=== PATIENT | female | born 1980 | race Caucasian/White ===

== ENCOUNTER 2020-11-30 22:57 | Emergency (ER) | payer SELFPAY ==
--- NOTE | ~2020-11-30 | XR_ITS ---
EXAMINATION: XR finger 4th RT min 2V DATE: 12/01/2020 00:32 INDICATION: Right hand fourth digit injury. TECHNIQUE: 3 views of right hand fourth digit were obtained. COMPARISON: None. FINDINGS: Bone alignment is normal. There is an old healed fracture of neck of fifth metacarpal with 2 screws. Joint spaces are normal. IMPRESSION: 1. No acute fracture. Reviewed, dictated and finalized at location A. IMPRESSION: 1. No acute fracture.
[2020-11-30 23:11] VITALS: BP 91/65; PULSE 107; RESP 18; TEMP 37.4; O2SAT 100
[2020-11-30] MEDS: LIDOCAINE HCL 1% LOCAL INJ 20 ML VIAL (23:26)
[2020-12-01] MEDS: NEOMYCIN/POLYMYXIN/BACITRACIN OINTMENT PACKET 2 PACKET (00:08)
--- NOTE | 2020-12-01 00:12 | ED.WOUNDLAC ---
HPI - Wound/Laceration General Chief Complaint: Wound/Laceration Stated Complaint: hand injury Time Seen by Provider: 11/30/20 23:30 Source: patient and family Mode of arrival: ambulatory Limitations: no limitations History of Present Illness HPI narrative: 40-year-old woman comes to emergency department complaining of laceration and bleeding from her right ring finger that started just prior to admission. She was moving an appliance at home when it shifted and caught her finger. she states she had a tetanus shot 5 years ago. She denies numbness. Onset (ago): minute(s) (20) Extremity Location: Right: hand (ring finger) Place: home Patient tetanus UTD: Yes Context: accidental Associated symptoms: pain Related Data Home Medications Medication Instructions Recorded Confirmed escitalopram oxalate 20 mg PO DAILY 11/30/20 11/30/20 Allergies Allergy/AdvReac Type Severity Reaction Status Date / Time codeine Allergy Mild Unknown Verified 01/01/18 10:35 amoxicillin Allergy Unknown rash Verified 01/01/18 10:35 Review of Systems Review of Systems: All systems reviewed & are unremarkable except as noted in HPI and below Constitutional: Constitutional: Denies weakness Gastrointestinal: Gastrointestinal: Denies nausea and Denies vomiting Musculoskeletal: Musculoskeletal: Denies arthralgias and Denies joint swelling Integumentary/Breasts: Skin/Breast: Reports as per HPI, Denies pruritus, Denies erythema and Denies rash Neurologic: Denies focal weakness and Denies numbness Hematologic/Lymphatic: Hematologic/Lymphatic: Denies easy bleeding and Denies easy bruising PMFSH Surgical History Surgical History (Updated 12/01/20 @ 00:19 by Benny Bui MD) H/O hand surgery right, with pins History of x 4 Social History Social History (Updated 12/01/20 @ 00:19 by Benny Bui MD) Smoking status: Current every day smoker Living arrangements: with family Exam Const: General: healthy appearing and alert Orientation/consciousness: patient oriented x3 Other: [id number] acute distress. Eyes: Conjunctivae: conjunctivae normal Pupils: Equal, round and reactive pupils present EOM: EOMs intact bilaterally Resp: Effort & Inspection: normal respiratory effort and not labored Auscultation: clear to auscultation bilaterally, no rales, no rhonchi and no wheezes Cardio: Rate: regular rate Rhythm: regular rhythm Heart sounds: no murmurs Skin: General skin exam: normal color, no jaundice and no pallor Rashes: no rashes Neuro: General: patient oriented x3, moves all extremities, no focal motor deficits and CN's II-XI intact bilaterally Speech: normal speech Gait exam (Neuro): Normal gait present Extrem: General: normal to inspection and no clubbing, cyanosis or edema Other: 4 cm laceration over the dorsal aspect of the PIP of the right ring finger. The proximal portion of the laceration begins over the ulnar aspect of the finger and distally hands over the dorsal aspect of the PIP. Distal neurovascular exam is intact. After digital anesthesia, patient flexes and extends against resistance both at the DIP and PIP of the right ring finger. no foreign bodies were found. Laceration extended longitudinally into the distal segment of the retinacular ligament. Psych: Appearance: grossly normal and well kempt Mental Status: mental status grossly normal Affect: Anxious affect present Attitude: cooperative Thought content: Yes Normal thought content present Course Vital Signs Vital signs: Vital Signs Temperature 37.4 C 11/30/20 23:11 Pulse Rate 107 H 11/30/20 23:11 Respiratory Rate 18 11/30/20 23:11 Blood Pressure 91/65 L 11/30/20 23:11 Pulse Oximetry 100 11/30/20 23:11 Temperature 37.4 C 11/30/20 23:11 Pulse Rate 107 H 11/30/20 23:11 Respiratory Rate 18 11/30/20 23:11 Blood Pressure 91/65 L 11/30/20 23:11 Pulse Oximetry 100 11/30/20 23:11 Pr
[2020-12-01] MEDS: HYDROcodone/acetaminophen (*CRX) 5-325 MG TABLET 1 TAB PO (00:27)
[2020-12-01 00:44] VITALS: BP 101/70; PULSE 91; RESP 20; TEMP 36.6; O2SAT 100
== END 2020-12-01 00:45 | disposition home or self-care (01) ==
PROVIDERS: Emergency Provider Emergency Medicine; PCP Physician Assistant
DX: S61.214A Laceration without foreign body of right ring finger without damage to nail, initial encounter (principal); W45.8XXA Other foreign body or object entering through skin, initial encounter
CPT/HCPCS: 12002; 73140; 99283; A9270

== ENCOUNTER 2021-08-29 13:54 | Emergency (ER) | payer BC, SELFPAY ==
--- NOTE | ~2021-08-29 | CT_ITS ---
EXAMINATION: CT brain wo con DATE: 08/29/2021 16:12 INDICATION: Headache, dizziness, double vision. TECHNIQUE: Computed tomography (CT) of the head was performed without intravenous contrast. The mA wa s adjusted according to patient size. The dose-length product was 605.33 mGy-cm. COMPARISON: 01/18/2011. FINDINGS: No acute intracranial hemorrhage or extra-axial fluid collection. No hydrocephalus, mass, or herniation. No acute ischemic infarct. Unremarkable dural venous sinus attenuation. No acute osseous abnormality. The aerated spaces are clear. IMPRESSION: No acute intracranial process. Reviewed, dictated and finalized at location K.
--- NOTE | ~2021-08-29 | CT_ITS ---
EXAMINATION: CT lumbar spine wo con DATE: 08/29/2021 16:13 INDICATION: Low back pain. TECHNIQUE: Computed tomography (CT) of the lumbar spine was performed without intravenous contrast. A utomated exposure control and iterative reconstruction technique were employed. The dose-length produ ct was 605.33 mGy-cm. COMPARISON: CT abdomen and pelvis 09/19/2012 FINDINGS: Bone alignment is normal. Vertebral body heights and intervertebral disc heights are normal . The following disc levels are specifically discussed: L1-L2: The disc does not extend beyond the endplate margin. There is mild bilateral facet joint osteo arthritis. There is no neural foraminal stenosis. There is no central canal stenosis. L2-L3: The disc does not extend beyond the endplate margin. There is mild bilateral facet joint osteo arthritis. There is no neural foraminal stenosis. There is no central canal stenosis. L3-L4: The disc does not extend beyond the endplate margin. There is mild bilateral facet joint osteo arthritis. There is no neural foraminal stenosis. There is no central canal stenosis. L4-L5: The disc is mildly bulging. There is mild bilateral facet joint osteoarthritis. There is mild right neural foraminal stenosis. There is no central canal stenosis. L5-S1: The disc is bulging. There is mild bilateral facet joint osteoarthritis. There is no neural fo raminal stenosis. There is mild central canal stenosis. IMPRESSION: 1. Mild lumbar spondylosis. Reviewed, dictated and finalized at location A. IMPRESSION: 1. Mild lumbar spondylosis.
--- NOTE | ~2021-08-29 | CT_ITS ---
EXAMINATION: CT thoracic spine wo con DATE: 08/29/2021 16:13 INDICATION: Upper back pain. TECHNIQUE: Computed tomography (CT) of the thoracic spine was performed without intravenous contrast. Automated exposure control and iterative reconstruction technique were employed. The dose-length pro duct was 605.33 mGy-cm. COMPARISON: Chest 2 views 01/01/2018 FINDINGS: Calcified right hilar and mediastinal lymph nodes are consistent with old granulomatous dis ease. Bone alignment is normal. Vertebral body heights are normal. Intervertebral disc heights are no rmal. There are endplate osteophytes at multiple levels. There is multilevel mild facet joint osteoar thritis. There is moderate right facet joint osteoarthritis at T3-T4 and moderate left facet joint os teoarthritis at T2-T3 and T3-T4. No central canal stenosis or neural foraminal stenosis. IMPRESSION: 1. Mild thoracic spondylosis. Reviewed, dictated and finalized at location A.
[2021-08-29 14:00] VITALS: BP 121/83; PULSE 118; RESP 20; TEMP 36.8; O2SAT 96
[2021-08-29 15:05] LABS: Basophils Absolute Auto 0.01 K/mm3 (0.00-0.10); Basophils Percent Auto 0.1 % (0.0-1.0); Hematocrit 36.8 % (35.0-49.0); Hemoglobin 11.2 g/dL (12.0-15.0); Immature Granulocyte Absolute 0.02 K/mm3 (0.00-0.00); Immature Granulocyte Percent A 0.3 % (0.0-0.0); Lymphocytes Absolute Auto 1.12 K/mm3 (1.10-4.50); Lymphocytes Percent Auto 14.5 % (18.0-42.0); Mean Corpuscular HGB Conc 30.4 g/dL (32.0-36.0); Mean Corpuscular Hemoglobin 25.3 pg (27.0-31.0); Mean Corpuscular Volume 83.1 fL (78.0-102.0); Mean Platelet Volume 9.3 fl (9.2-11.8); Monocytes Absolute Auto 0.64 K/mm3 (0.10-0.90); Monocytes Percent Auto 8.3 % (2.0-11.0); Neutrophils Percent Auto 76.8 % (50.0-70.0); Platelet Count Result 427 K/mm3 (150-420); Red Blood Count 4.43 M/mm3 (4.20-5.40); White Blood Count 7.7 K/mm3 (4.8-10.8)
[2021-08-29 15:06] LABS: Appearance Urine Cloudy (Clear); Bilirubin Urine Negative (Negative); Color Urine Light Yellow (Yellow); Glucose Urine UA Negative (Negative); Ketones Urine Negative (Negative); Leukocyte Esterase Ur 2+ (Negative); Nitrate Urine Negative (Negative); Protein Urine Negative (Negative); Urobilinogen Urine 0.2 mg/dL (0.2-1.0)
--- NOTE | 2021-08-29 15:06 | PC.NURSE ---
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 pt states tylenol doesnt work for me that is why i came to the er and i dont want the mucinex either . explained these are medications as ordered , pt states i want to speak to the doctor . dr swanson notified of same
[2021-08-29 15:12] LABS: Add Urine Microscopic? YES; Bacteria Urine 1+ /hpf; Blood Urine Trace-Intact (Negative); RBC Urine 0-2 /hpf (0-2); Squamous Epithelial Cell Urine Moderate /hpf (Few)
[2021-08-29 15:12] LABS: Influenza A QL RT-PCR Negative (Negative); Influenza B QL RT-PCR Negative (Negative); SARS-CoV-2 RNA PCR Negative (Negative)
[2021-08-29 15:14] LABS: Alanine Aminotransferase 15 U/L (14-59); Albumin Level 3.1 g/dL (3.4-5.0); Alkaline Phosphatase 61 U/L (46-116); Anion Gap 7 mmol/L (8-16); Aspartate Amino Transferase 11 U/L (15-37); Bilirubin,Total 0.3 mg/dL (0.00-1.00); Blood Urea Nitrogen 5 mg/dL (7-18); Calcium 8.8 mg/dL (8.5-10.1); Carbon Dioxide 26 mmol/L (21-32); Chloride 103 mmol/L (98-108); Estimated Glomerular Filt Rate > 60; Glucose 92 mg/dL (70-99); Osmolality Calculated 279 mOsm/kg (285-295); Sodium 136 mmol/L (136-145); Total Protein 6.8 g/dL (6.4-8.2)
[2021-08-29 15:17] LABS: SPREG INTERNAL CONTROL Positive; Serum Qual hCG Negative
[2021-08-29] MEDS: KETOROLAC (*BKC) 60 MG/2 ML VIAL IM (16:20)
--- NOTE | 2021-08-29 17:05 | ED.GENADULT ---
HPI - General Adult General Chief complaint: Unspecified Stated complaint: Migraim/ ear pain/lower back pain/shoulde/fever Time Seen by Provider: 08/29/21 13:56 Source: patient and RN notes reviewed Mode of arrival: ambulatory Limitations: no limitations History of Present Illness Onset (ago): day(s) (KEANE x 11 days and Back pain x 8 days. no acute injury.) Location: head, back and buttocks Severity: mild Severity scale (1-10): 9 Quality: aching Pain Consistency: constant Relieving factors: none Exacerbating factors: movement Associated symptoms: fever/chills Treatments prior to arrival: NSAID Related Data Allergies Allergy/AdvReac Type Severity Reaction Status Date / Time codeine Allergy Mild Unknown Verified 01/01/18 10:35 amoxicillin Allergy Unknown rash Verified 01/01/18 10:35 Review of Systems Review of Systems: All systems reviewed & are unremarkable except as noted in HPI and below Constitutional: Constitutional: Reports as per HPI Eyes: Eyes: Reports as per HPI ENT: Reports system reviewed and no additional complaints, except as documented PMFSH Past Medical History Medical History Headache Sciatica of left side Upper back pain Surgical History Surgical History H/O hand surgery right, with pins History of x 4 Social History Social History Smoking status: Current every day smoker Exam Const: General: cooperative and uncomfortable Nutritional Appearance: well nourished Orientation/consciousness: oriented to person and patient oriented x3 Limitations: no limitations HENMT: Head: normocephalic and atraumatic Ears: hearing grossly normal bilaterally, external ears normal and TM's normal bilaterally General nose exam: Normal external nose present and Normal nares present Face and sinus: normal facial exam Mouth: Yes Normal oral and palatal mucosa present and Yes lip normal Throat: posterior oropharynx normal Eyes: General: appearance normal, both eyes and all related structures Visual Wong: normal visual wong by confrontation Eyelids: eyelids normal Conjunctivae: conjunctivae normal Sclera: sclerae normal Cornea: corneas normal Pupils: Equal, round and reactive pupils present and Pupils normal by confrontation EOM: EOMs intact bilaterally Neck: Neck: normal visual inspection, full ROM, no lymphadenopathy and no meningeal signs Chest: Chest palpation & inspection: normal inspection of the chest Resp: Effort & Inspection: normal respiratory effort Auscultation: clear to auscultation bilaterally Cardio: Jugular venous distension: no JVD Rate: regular rate Rhythm: regular rhythm GI: GI Palp: No abdominal tenderness Auscultation: normal bowel sounds Back/Spine/Pelvis: Back: no CVA tenderness Cervical Spine: cervical ROM normal Thoracic/Lumbar Spine: thoraco-lumbar ROM normal Skin: General skin exam: normal color Neuro: General: oriented to person, oriented to place, oriented to time and patient oriented x3 Cranial nerves: Yes CN's II-XII intact bilaterally, Yes Equal, round and reactive pupils present, Yes Normal accommodation reflex present and Yes Bilaterally intact EOM present Cognition (Neuro): normal cognition Speech: normal speech Gait exam (Neuro): Normal gait present Motor exam (neuro): 5/5 motor strength present throughout Sensory Exam: normal sensation Extrem: General: normal to inspection, full ROM, capillary refill normal, no pedal edema, no calf tenderness and other (no acute joint or muscle tenderness.) Psych: Appearance: grossly normal and well kempt Mental Status: mental status grossly normal Speech and movement: Normal speech and movement present Affect: normal affect Attitude: cooperative Thought process: Normal thought process present Thought content: Yes Normal thought content
[2021-08-29 17:09] VITALS: BP 120/84; PULSE 97; RESP 20; TEMP 36.6; O2SAT 98
[2021-08-29] MEDS: MORPHINE SULFATE (*CRX) 4 MG/ML INJ IM (17:32)
[2021-08-29] MEDS: ONDANSETRON HCL ODT 4 MG TABLET PO (17:33)
== END 2021-08-29 17:48 | disposition home or self-care (01) ==
PROVIDERS: Emergency Provider Emergency Medicine; PCP Physician Assistant
DX: M54.32 Sciatica, left side (principal); M54.6 Pain in thoracic spine; G44.209 Tension-type headache, unspecified, not intractable; Z20.822 Contact with and (suspected) exposure to COVID-19
CPT/HCPCS: 36415; 70450; 72128; 72131; 80053; 81001; 84703; 85025; 87502; 96372; 99284; A9270; C9803; J1885; J2270; U0003; U0005

== ENCOUNTER 2021-08-30 17:21 | Observation (INO) | payer BC, SELFPAY ==
[2021-08-30] VITALS (8 sets, daily range): BP systolic 82–122; BP diastolic 51–74; PULSE 84–116; RESP 16–20; TEMP 36.8–39.8; O2SAT 97–100; BMI 24.2
--- NOTE | ~2021-08-30 | CT_ITS ---
EXAMINATION: CT abdomen pelvis w con DATE: 08/30/2021 19:05 INDICATION: Bilateral flank pain for 12 days. Fever. TECHNIQUE: Computed tomography (CT) of the abdomen and pelvis was performed with 100 CC Omnipaque 350 intravenous contrast. Automated exposure control and iterative reconstruction technique were employe d. Exam dose: 285.32 mGy-cm total exam DLP. COMPARISON: 09/2012 CT abdomen pelvis FINDINGS: Minimal dependent atelectasis at the lower lobes. Normal heart size. No pericardial or pleu ral effusion. Small sliding hiatal hernia. The liver, gallbladder, bile ducts, spleen, pancreas and pancreatic duct are unremarkable. Normal morphology of the adrenal glands. There is patchy diminished contrast enhancement of portions of each kidney, suggesting bilateral acut e pyelonephritis. There is mild thickening of the rm of the renal pelves and ureters and urinary b ladder. Approximately 2.6 cm ruptured right ovarian peripherally enhancing cysts with some adjacent right adn exal fluid. There is mild free fluid in the cul-de-sac as well. Normal caliber of the abdominal aorta. No intraperitoneal or retroperitoneal or pelvic mass lesion or adenopathy. IMPRESSION: Bilateral acute pyelonephritis, urinary tract infections 2.67 ruptured right ovarian cyst with fluid in the right adnexal area and cul-de-sac Reviewed, dictated and finalized at Location A. Reviewed, dictated and finalized at location A. IMPRESSION: Bilateral acute pyelonephritis, urinary tract infections 2.67 ruptured right ovarian cyst with fluid in the right adnexal area and cul-d e-sac
[2021-08-30] MEDS: ACETAMINOPHEN 500 MG TABLET 1000 MG PO (17:54)
[2021-08-30] MEDS: SODIUM CHLORIDE 0.9% IV 1,000 ML 999 ML IV CONT ×2 (17:55→20:00)
[2021-08-30] MEDS: HYDROmorphone HCL INJ (*CRX) 2 MG/ML VIAL 0.5 MG IV PUSH ×2 (17:59→20:44)
[2021-08-30 18:10] LABS: Basophils Absolute Auto 0.01 K/mm3 (0.00-0.10); Basophils Percent Auto 0.1 % (0.0-1.0); Hematocrit 33.9 % (35.0-49.0); Hemoglobin 10.5 g/dL (12.0-15.0); Immature Granulocyte Absolute 0.03 K/mm3 (0.00-0.00); Immature Granulocyte Percent A 0.3 % (0.0-0.0); Lymphocytes Absolute Auto 0.89 K/mm3 (1.10-4.50); Lymphocytes Percent Auto 10.2 % (18.0-42.0); Mean Corpuscular Hemoglobin 25.7 pg (27.0-31.0); Mean Corpuscular Volume 83.1 fL (78.0-102.0); Mean Platelet Volume 9.3 fl (9.2-11.8); Monocytes Absolute Auto 0.71 K/mm3 (0.10-0.90); Monocytes Percent Auto 8.2 % (2.0-11.0); Neutrophils Absolute Auto 7.1 K/mm3 (1.7-7.2); Neutrophils Percent Auto 81.2 % (50.0-70.0); Platelet Count Result 355 K/mm3 (150-420); Red Blood Count 4.08 M/mm3 (4.20-5.40); Red Cell Distribution Width 15.6 % (11.6-14.4); White Blood Count 8.7 K/mm3 (4.8-10.8)
[2021-08-30 18:14] LABS: Appearance Urine Clear (Clear); Bilirubin Urine Negative (Negative); Color Urine Light Yellow (Yellow); Glucose Urine UA Negative (Negative); Ketones Urine Trace (Negative); Leukocyte Esterase Ur 1+ (Negative); Nitrate Urine Negative (Negative); Protein Urine Trace (Negative); Specific Grav Ur 1.015 (1.010-1.020); Urobilinogen Urine 0.2 mg/dL (0.2-1.0)
[2021-08-30 18:16] LABS: Pregnancy On Board Control Positive; Urine Pregnancy Test Negative
[2021-08-30 18:19] LABS: Add Urine Microscopic? YES; Bacteria Urine 1+ /hpf; Blood Urine Trace-Intact (Negative); Squamous Epithelial Cell Urine Rare /hpf (Few); WBC Urine 16-20 /hpf (0-3)
[2021-08-30 18:35] LABS: Alanine Aminotransferase 15 U/L (14-59); Albumin Level 3.1 g/dL (3.4-5.0); Alkaline Phosphatase 63 U/L (46-116); Anion Gap 11 mmol/L (8-16); Aspartate Amino Transferase 11 U/L (15-37); Bilirubin,Total 0.2 mg/dL (0.00-1.00); Blood Urea Nitrogen 8 mg/dL (7-18); Calcium 8.2 mg/dL (8.5-10.1); Carbon Dioxide 24 mmol/L (21-32); Chloride 99 mmol/L (98-108); Estimated CRCL calculation 71 ml/min; Estimated Glomerular Filt Rate > 60; Glucose 95 mg/dL (70-99); Osmolality Calculated 276 mOsm/kg (285-295); Potassium 3.7 mmol/L (3.5-5.1); Sodium 134 mmol/L (136-145); Total Protein 6.9 g/dL (6.4-8.2)
[2021-08-30 18:47] LABS: CRP 12.3 mg/dL (0.0-0.9)
--- NOTE | 2021-08-30 19:17 | ED.FEVER ---
HPI - Fever General Chief Complaint: Fever Stated Complaint: headache,backache,fever,shakes Source: patient Mode of arrival: ambulatory Limitations: no limitations History of Present Illness HPI Narrative: this is a 41-year-old female no significant past medical history presents with some fever and chills it has been going on for approximately a week was seen yesterday and treated for sciatica, the patient describes having flank pain with dysuria temperature up to 103 with chills and weakness and flank pain with a headache. Currently there is no nausea vomiting no chest pain no shortness of breath no neck stiffness no photophobia or visual changes. Patient had a negative flu and a negative COVID yesterday during her ER visit. Patient was given pain medication and sent home. MD elicited complaint: fever Onset (ago): day(s) Associated symptoms: chills, headache, dysuria and back/flank pain Related Data Allergies Allergy/AdvReac Type Severity Reaction Status Date / Time amoxicillin Allergy Unknown rash Verified 01/01/18 10:35 Review of Systems Review of Systems: All systems reviewed & are unremarkable except as noted in HPI and below PMFSH Past Medical History Medical History Headache Sciatica of left side Upper back pain Surgical History Surgical History H/O hand surgery right, with pins History of x 4 Social History Social History Smoking status: Current every day smoker Exam Const: General: no acute distress and alert Orientation/consciousness: patient oriented x3 HENMT: Head: normal to inspection Eyes: Conjunctivae: conjunctivae normal Pupils: Equal, round and reactive pupils present Neck: Neck: normal visual inspection Chest: Chest palpation & inspection: normal inspection of the chest Resp: Effort & Inspection: normal respiratory effort Auscultation: clear to auscultation bilaterally Cardio: Rate: regular rate Rhythm: regular rhythm GI: GI Palp: Yes Soft to palpation : General: Yes CVA tenderness Urinary Catheter: Urinary Catheter: urine cloudy Back/Spine/Pelvis: Back: CVA tenderness Skin: General skin exam: normal color Rashes: no rashes Neuro: General: patient oriented x3 and moves all extremities Extrem: General: normal to inspection and no pedal edema Psych: Mental Status: mental status grossly normal Affect: normal affect Course [employer] SPECIALIST/PA Physician Supervision reassessment of patient her pain symptoms and fever had markedly improved temperature currently 100.4? and her pain level is down to about a 2 or [address] scan that was ordered reviewed with patient which showed that she had bilateral pyelonephritis with a small right ruptured ovarian cyst. White count reviewed which is normal lactic acid reviewed which was normal CRP is elevated with a normal white count the patient received IV fluids Dilaudid for pain as well as g of Tylenol for her fever. Patient received IV Levaquin. Vital Signs Vital signs: Vital Signs Temperature 39.8 C H 08/30/21 17:30 Pulse Rate 116 H 08/30/21 17:30 Respiratory Rate 20 08/30/21 17:30 Blood Pressure 121/62 08/30/21 17:30 Pulse Oximetry 99 08/30/21 17:30 Temperature 37.7 C H 08/30/21 19:22 Pulse Rate 100 08/30/21 19:22 Respiratory Rate 18 08/30/21 19:22 Blood Pressure 122/74 08/30/21 19:22 Pulse Oximetry 99 08/30/21 19:22 MDM - Fever Lab Data Result diagrams: 08/30/21 18:05 08/30/21 18:05 Labs: Lab Results 08/30/21 08/30/21 08/30/21 Range/Units 18:05 18:05 18:05 WBC 8.7 (4.8-10.8) K/mm3 RBC 4.08 L (4.20-5.40) M/mm3 Hgb 10.5 L (12.0-15.0) g/dL Hct 33.9 L (35.0-49.0) % MCV 83.1 (78.0-102.0) fL MCH 25.7 L (27.0-31.0) pg MCHC 31.0 L
--- NOTE | 2021-08-30 19:48 | PC.NURSE ---
pt about test results and POC for admission. Pt agreeable to stay and orders received.
[2021-08-30] MEDS: levoFLOXacin 500 MG/D5W 100 ML 500 MG/100 ML BAG 100 MG IVPB (20:09)
--- NOTE | 2021-08-30 20:15 | PC.NURSE ---
Call placed to floor for bed assignment. Pt will go to Rm [id number] for 23 hr. obs.Pt eating [employer] at this time and states she is now feeling some better and able to eat which she hasn't been able to do in days. VSS awaiting callback from RN to give report.
[2021-08-30] MEDS: SODIUM CHLORIDE 0.9% IV 1,000 ML 100 ML IV CONT (21:08)
--- NOTE | 2021-08-30 21:15 | PC.NURSE ---
Pain rated at 5.
--- NOTE | 2021-08-30 21:27 | ADMGEN ---
This patient, Sandra Kelly, was admitted to 2nd Floor Room 209-1. Patient/family oriented to hospital policies and general routines including ID bracelet, bed and alarms, visiting hours, pain management, procedures, bathroom and other care routines, personal items, smoking policy, room service/diet, and visiting hours. Information on how to activate the Rapid Response Team has been discussed. Patient/Family are encouraged to report perceived risks to care and to ask questions if they do not understand what they are told or what they should do.
[2021-08-30] MEDS: IBUPROFEN 400 MG TABLET PO (23:44)
[2021-08-31 05:40] LABS: Anion Gap 10 mmol/L (8-16); Blood Urea Nitrogen 7 mg/dL (7-18); Calcium 7.3 mg/dL (8.5-10.1); Carbon Dioxide 22 mmol/L (21-32); Chloride 105 mmol/L (98-108); Estimated CRCL calculation 83 ml/min; Estimated Glomerular Filt Rate > 60; Glucose 124 mg/dL (70-99); Osmolality Calculated 283 mOsm/kg (285-295); Potassium 3.5 mmol/L (3.5-5.1); Sodium 137 mmol/L (136-145)
--- NOTE | 2021-08-31 06:30 | PC.NURSE ---
Patient sleeping pain 0 on flacc
--- NOTE | 2021-08-31 07:20 | PM.SD2 ---
Same Day Admit/Disch: HPI History of Present Illness Chief complaint: PYLEONEPHRITIS Narrative: Sandra Kelly is a 41 year old female that presented to the emergency room with nausea vomiting and headache was found to have a urinary tract infection and she was febrile. Patient was having severe back pain she was given Dilaudid in the emergency room and some IV fluids with IV antibiotic. While on the floor patient was treated with IV antibiotics given some oral medication for pain as well as Imitrex for headache patient states she has had a headache for 10 to 13 days. Patient was found to have ovarian cyst and needs to follow-up with WOUND/OSTOMY NURSE. Patient will go home on oral antibiotics and was given some pain medication. I also ordered patient some medication for headache. Patient is able to eat and drink without any difficulties she denies any nausea and or vomiting patient very anxious to leave I encourage patient to drink plenty of fluids and to make sure that she is avoiding caffeine and urinating immediately after any intercourse. Explained how vital it was for patient to complete all of her antibiotics and to make sure she is drinking plenty of fluids. [facility] Past Medical History Medical History Headache Sciatica of left side Upper back pain Surgical History Surgical History H/O hand surgery right, with pins History of x 4 Social History Social History Smoking status: Never smoker Alcohol intake: former Substance use: never Substance use type: does not use Spiritual care concerns: No Comments At time as signature, I have reviewed and agree with nursing past medical, social, surgical and family history. Please see nursing chart for further information. There is no relevant family history pertinent to the presenting complaint. Same Day Admit/Disch: Med Pre-admit Medications Home Medications Medication Instructions Recorded Confirmed Type ibuprofen 800 mg PO TID #20 tablet 08/29/21 08/31/21 Rx omeprazole magnesium [Prilosec OTC] 20 mg PO BID #20 tablet 08/29/21 08/31/21 Rx ondansetron 4 mg PO Q8H #20 tablet 08/29/21 08/31/21 Rx tramadol 50 mg PO BID PRN #6 tablet 08/29/21 08/31/21 Rx ciprofloxacin HCl 500 mg PO Q12H #14 tablet 08/31/21 08/31/21 Rx sumatriptan succinate [Imitrex] 25 mg PO ONCE #14 tablet 08/31/21 08/31/21 Rx cephalexin 500 mg PO Q8H 10 Days #30 cap 09/01/21 Rx Exam Narrative: GENERAL:Well-appearing, well-nourished, and in no acute distress. HEAD:Normocephalic, atraumatic. Headache EYES: PERRLA and EOMI. ENT: Nares clear, no rhinorrhea or epistaxis. Mucous membranes moist. CHEST: Clear to auscultation. No respiratory distress. HEART: Regular rate and rhythm. Normal peripheral pulses. ABDOMEN: Soft, nontender, nondistended, normal active bowel sounds. EXTREMITIES: Normal range of motion. No edema. SKIN: Warm, dry, no rash. NEURO: No focal deficits. Alert and oriented x3. CT negative DS: Data Data Completed and Pending Labs on day of discharge: Labs from last 24 hours 08/31/21 08/30/21 08/30/21 05:24 18:05 18:05 WBC RBC Hgb Hct MCV MCH MCHC RDW Plt Count MPV Immature Gran % (Auto) Neut % (Auto) Lymph % (Auto) [place] % (Auto) Eos % (Auto) Baso % (Auto) Lymph # (Auto) [place] # (Auto) Eos # (Auto) Baso # (Auto) Abs Immat Gran (auto) Absolute Neuts (auto) Absolute Nucleated RBC Nucleated RBC % Sodium 137 Potassium 3.5 Chloride 105 Carbon Dioxide 22 Anion Gap 10 BUN 7 Creatinine 0.71 Estim Creat Clear Calc 83 Estimated GFR > 60 Glucose 124 H Calculated Osmolality 283 L Lactic Acid 1.0 Calcium 7.3 L Total Bilirubin AST ALT Alkaline Phosphatase C-Reactive Protein Tota
[2021-08-31] MEDS: KETOROLAC 30 MG/ML VIAL (*BKC) IV PUSH (07:55)
[2021-08-31 08:00] VITALS: BP 90/56; PULSE 88; RESP 14; TEMP 36.6; O2SAT 97
[2021-08-31] MEDS: IBUPROFEN 400 MG TABLET PO (08:57)
[2021-08-31] MEDS: MORPHINE SULFATE (*CRX) 4 MG/ML INJ IV PUSH (09:20)
[2021-08-31] MEDS: PANTOPRAZOLE SODIUM IV 40 MG VIAL IV PUSH (09:22)
[2021-08-31] MEDS: SUMAtriptan SUCCINATE 25 MG TABLET PO (11:50)
[2021-08-31] MEDS: ACETAMINOPHEN 325 MG TABLET 650 MG PO (13:04)
--- NOTE | 2021-08-31 14:13 | PC.NURSE ---
Pt discharged to home with vss. Discharge instructions given to pt. Medications reviewed. RN stressed to pt that it is important to keep her doctor appointments and follow up with OBGYN. 20G IV removed from RAC and dressing applied.
--- NOTE | 2021-09-03 10:03 | PC.NURSE ---
Unable to contact patient for discharge call back.
== END 2021-08-31 14:10 | disposition home or self-care (01) ==
LOC: CHSED 19:55 → CHS2ND 20:18
PROVIDERS: Nurse Practitioner Family; Admitting Provider Internal Medicine; Emergency Provider Emergency Medicine; PCP Physician Assistant; Visit Provider Internal Medicine
DX: N10 Acute pyelonephritis (principal); N83.201 Unspecified ovarian cyst, right side; R51.9 Headache, unspecified; M54.32 Sciatica, left side; Z72.0 Tobacco use
CPT/HCPCS: 36415; 74177; 80048; 80053; 81001; 81025; 83605; 85025; 86140; 87040; 96361; 96365; 96375; 96376; 99285; A9270; C9113; G0378; G0379; J1170; J1885; J1956; J2270; J7030; Q9967

== ENCOUNTER 2021-08-31 23:08 | Emergency (ER) | payer BC, SELFPAY ==
[2021-08-31 23:18] VITALS: BP 113/59; PULSE 102; RESP 20; TEMP 38.7; O2SAT 97
--- NOTE | 2021-08-31 23:20 | ED.FEVER ---
HPI - Fever General Chief Complaint: Fever Stated Complaint: lower back pain/fever/migrain headache Time Seen by Provider: 08/31/21 23:20 Source: patient and RN notes reviewed Mode of arrival: ambulatory Limitations: no limitations History of Present Illness HPI Narrative: The patient was just discharged from the hospital with pyelonephritis. Said that she was doing well but then this evening began having more left flank pain and spiked a fever to 105. She took some ibuprofen and she has taken some Tylenol. Says that she is feeling weak and jittery. She also has a headache. MD elicited complaint: fever and malaise Relieving factors: nothing Associated symptoms: chills, myalgias, headache and back/flank pain Treatments prior to arrival fever: acetaminophen and ibuprofen Related Data Allergies Allergy/AdvReac Type Severity Reaction Status Date / Time amoxicillin Allergy Unknown rash Verified 01/01/18 10:35 Review of Systems Review of Systems: All systems reviewed & are unremarkable except as noted in HPI and below PMFSH Past Medical History Medical History Headache Sciatica of left side Upper back pain Surgical History Surgical History H/O hand surgery right, with pins History of x 4 Social History Social History Smoking status: Never smoker Alcohol intake: former Substance use: never Substance use type: does not use Spiritual care concerns: No Exam Const: General: no acute distress and ill appearing acutely Nutritional Appearance: well nourished and thin Orientation/consciousness: patient oriented x3 Other: Female nurse in the room during examination. HENMT: Head: normal to inspection Ears: external ears normal Eyes: Conjunctivae: conjunctivae normal Pupils: Equal, round and reactive pupils present EOM: EOMs intact bilaterally Neck: Neck: normal visual inspection Resp: Effort & Inspection: normal respiratory effort Auscultation: clear to auscultation bilaterally Cardio: Rate: regular rate and tachycardic GI: GI Palp: Yes Soft to palpation, Yes Tenderness to palpation present (GI) (LUQ) and Yes Guarding due to palpation present (GI) (moderate LUQ) Auscultation: normal bowel sounds Back/Spine/Pelvis: Back: no CVA tenderness Skin: General skin exam: normal color Rashes: no rashes Neuro: General: patient oriented x3, moves all extremities, no meningeal signs, no focal motor deficits and CN's II-XI intact bilaterally Speech: normal speech Gait exam (Neuro): Normal gait present Extrem: General: normal to inspection and no clubbing, cyanosis or edema Psych: Mental Status: mental status grossly normal Affect: normal affect Attitude: cooperative Thought content: Yes Normal thought content present Course EMG TECHNICIAN/PA Physician Supervision patient given Toradol 30 mg IV which made no difference in her migraine. Then ketamine 20 mg IV which completely resolved her migraine for approximately 15 minutes. She is then given Reglan 10 mg IV. This has improved her Headache. Her white count is unchanged, lactic acid remains normal. The only thing abnormal is receive reactive protein has elevated. Going to give her a g Rocephin and add a 2nd antibiotic for her at home. She has minimal flank pain. Her fever is controlled in the emergency room to 98.5. Vital Signs Vital signs: Vital Signs Temperature 38.7 C H 08/31/21 23:18 Pulse Rate 102 H 08/31/21 23:18 Respiratory Rate 20 08/31/21 23:18 Blood Pressure 113/59 L 08/31/21 23:18 Pulse Oximetry 97 08/31/21 23:18 Temperature 37.0 C 09/01/21 02:09 Pulse Rate 90 09/01/21 02:09 Respiratory Rate 18 09/01/21 02:09 Blood Pressure 96/64 L 09/01/21 02:09 Pulse Oximetry 98 09/01/21 02:09 MDM - Fever Lab Data Result diagrams: 08/31/21 23:31
[2021-08-31 23:45] LABS: Basophils Absolute Auto 0.01 K/mm3 (0.00-0.10); Basophils Percent Auto 0.1 % (0.0-1.0); Hematocrit 28.8 % (35.0-49.0); Hemoglobin 9.1 g/dL (12.0-15.0); Immature Granulocyte Absolute 0.03 K/mm3 (0.00-0.00); Immature Granulocyte Percent A 0.4 % (0.0-0.0); Lymphocytes Absolute Auto 0.89 K/mm3 (1.10-4.50); Lymphocytes Percent Auto 10.8 % (18.0-42.0); Mean Corpuscular HGB Conc 31.6 g/dL (32.0-36.0); Mean Corpuscular Hemoglobin 26.4 pg (27.0-31.0); Mean Corpuscular Volume 83.5 fL (78.0-102.0); Mean Platelet Volume 9.6 fl (9.2-11.8); Monocytes Absolute Auto 0.87 K/mm3 (0.10-0.90); Monocytes Percent Auto 10.6 % (2.0-11.0); Neutrophils Absolute Auto 6.4 K/mm3 (1.7-7.2); Neutrophils Percent Auto 78.1 % (50.0-70.0); Platelet Count Result 286 K/mm3 (150-420); Red Blood Count 3.45 M/mm3 (4.20-5.40); Red Cell Distribution Width 16.1 % (11.6-14.4); White Blood Count 8.2 K/mm3 (4.8-10.8)
[2021-08-31] MEDS: KETOROLAC 30 MG/ML VIAL (*BKC) IV PUSH (23:47)
[2021-09-01 00:01] LABS: Alanine Aminotransferase 19 U/L (14-59); Albumin Level 2.5 g/dL (3.4-5.0); Alkaline Phosphatase 61 U/L (46-116); Anion Gap 8 mmol/L (8-16); Aspartate Amino Transferase 18 U/L (15-37); Bilirubin,Total 0.1 mg/dL (0.00-1.00); Blood Urea Nitrogen 6 mg/dL (7-18); Calcium 7.8 mg/dL (8.5-10.1); Carbon Dioxide 25 mmol/L (21-32); Chloride 102 mmol/L (98-108); Estimated CRCL calculation 79 ml/min; Estimated Glomerular Filt Rate > 60; Glucose 100 mg/dL (70-99); Magnesium 1.7 mg/dL (1.8-2.4); Osmolality Calculated 277 mOsm/kg (285-295); Potassium 3.5 mmol/L (3.5-5.1); Sodium 135 mmol/L (136-145)
[2021-09-01 00:04] LABS: CRP 19.7 mg/dL (0.0-0.9)
[2021-09-01 00:08] LABS: Lactic Acid Reflex 0.6 mmol/L (0.4-2.0)
[2021-09-01 00:48] VITALS: TEMP 38.1
[2021-09-01] MEDS: KETAMINE HCL (*CRX) 500 MG/10 ML VIAL 20 MG IV PUSH (01:00)
[2021-09-01 01:07] VITALS: BP 132/76; PULSE 100; RESP 20; TEMP 38.1; O2SAT 98
[2021-09-01] MEDS: METOCLOPRAMIDE HCL INJ 10 MG/2 ML VIAL IV PUSH (01:43)
[2021-09-01 02:09] VITALS: BP 96/64; PULSE 90; RESP 18; TEMP 37; O2SAT 98
== END 2021-09-01 02:16 | disposition home or self-care (01) ==
PROVIDERS: Emergency Provider Emergency Medicine; PCP Physician Assistant
DX: N12 Tubulo-interstitial nephritis, not specified as acute or chronic (principal); R50.81 Fever presenting with conditions classified elsewhere; G44.211 Episodic tension-type headache, intractable
CPT/HCPCS: 36415; 80053; 83605; 83735; 85025; 86140; 96365; 96374; 96375; 99284; J0696; J1885; J2765

== ENCOUNTER 2022-08-06 13:54 | Emergency (ER) | payer BC, SELFPAY ==
--- NOTE | ~2022-08-06 | CT_ITS ---
EXAMINATION: CT abdomen pelvis wo con DATE: 08/06/2022 15:38 INDICATION: Lower abdominal pain TECHNIQUE: Computed tomography (CT) of the abdomen and pelvis was performed without intravenous contr ast. The dose-length product (DLP) was 207.36 mGy-cm. Automated exposure control and iterative recons truction technique were employed. COMPARISON: 08/30/2021 FINDINGS: The lung bases are clear. The heart size is normal. The liver, spleen, pancreas, gallbladde r, and adrenal glands are normal. The kidneys are unremarkable. No pathologically enlarged abdominal or pelvic lymph nodes are identified. No free intraperitoneal gas or evidence of bowel obstruction. T he appendix is unremarkable. There are multiple phleboliths of the pelvis. The visualized osseous str uctures are unremarkable. IMPRESSION: 1. No CT correlate for the patient's symptoms. Reviewed, dictated and finalized at location L.
[2022-08-06 13:55] VITALS: BP 103/75; PULSE 89; RESP 18; TEMP 37.1; O2SAT 98
--- NOTE | 2022-08-06 14:20 | ED.ABDPAIN ---
HPI - Abdominal Pain General Chief Complaint: Abdominal Pain Stated Complaint: abdominal pain Time Seen by Provider: 08/06/22 14:20 Source: patient Mode of arrival: ambulatory Limitations: no limitations History of Present Illness HPI narrative: COMPLAINS OF ABDOMINAL PAIN she has a history of ovarian cyst and endometriosis she complains of right lower quadrant pain that feels like a pressure sensation like some is put in her elbow on her. Pain radiates to the left 8/10. She has been in bed for the last 2 days. She has use heat Tylenol ibuprofen tramadol without any help pain comes and goes. His similar pain last August has had pain monthly since then to every week. She is waiting to get a new drug safety assistant and get treatment for her endometriosis. She has had nausea without vomiting she has had 6 diarrheal stools in the last 24 hours no blood in her stool or melena. Denies any other symptoms no cough rash bleeding or bruising fever cough runny nose sore throat. She had pyelonephritis last August. Related Data Home Medications Medication Instructions Recorded Confirmed dextroamphetamine-amphetamine 10 10 mg PO BID 08/06/22 08/06/22 mg tablet Allergies Allergy/AdvReac Type Severity Reaction Status Date / Time amoxicillin Allergy Unknown rash Verified 08/06/22 14:03 Review of Systems Constitutional: Constitutional: Reports no additional constitutional complaints Eyes: Eyes: Reports no additional eye complaints ENT: Reports system reviewed and no additional complaints, except as documented Cardiovascular: Cardiovascular: Reports no additional cardiovascular complaints Respiratory: Respiratory: Reports no additional respiratory complaints Gastrointestinal: Gastrointestinal: Reports abdominal pain, Reports diarrhea, Reports nausea and Denies vomiting Genitourinary: Genitourinary: Reports no additional female genitourinary complaints Musculoskeletal: Musculoskeletal: Reports no additional musculoskeletal complaints Integumentary/Breasts: Skin/Breast: Reports system reviewed and no additional complaints, except as docu Neurologic: Reports system reviewed and no additional complaints, except as documented Psychiatric: Psychiatric: Reports no additional psychiatric complaints PMFSH Past Medical History Medical History Headache Sciatica of left side Upper back pain Surgical History Surgical History H/O hand surgery right, with pins History of x 4 Social History Social History Smoking status: Never smoker Alcohol intake: former Substance use: never Substance use type: does not use Living arrangements: with family Spiritual care concerns: No Exam Narrative: White female no apparent distress.? Head normocephalic, atraumatic.? Eyes conjunctiva pink sclera nonicteric.? Extraocular movements are intact.? Ears externally normal.? Oropharynx is clear with moist mucous membranes without exudates.? Neck is supple nontender no lymphadenopathy. ?Back is nontender.? Lungs are clear.? Heart is regular rate and rhythm without murmurs gallops or rubs.? Chest wall is nontender.? Abdomen is soft With mild tenderness the right lower quadrant without rebound or guarding. Negative internal obturator sign negative Teresa sign. no hepatosplenomegaly or masses no CVA tenderness no abdominal bruits. ?Extremities no cyanosis clubbing or edema. ?Skin is warm and dry without rashes or lesions.? Neurological patient is alert and oriented x4.? Motor and sensory grossly intact.? Gait is normal. Course Vital Signs Vital signs: Vital Signs Temperature 37.1 C 08/06/22 13:55 Pulse Rate 89 08/06/22 13:55 Respiratory Rate 18 08/06/22 13:55 Blood Pressure 103/75 08/06/22 13:55 Pulse Oximetry 98 08/06/22 13:55 Oxygen Delivery Room Air 0
[2022-08-06] MEDS: KETOROLAC 30 MG/ML VIAL (*BKC) IV PUSH (15:01)
[2022-08-06] MEDS: ONDANSETRON INJ 4 MG/2 ML VIAL IV PUSH (15:01)
[2022-08-06 15:11] LABS: Appearance Urine Clear (Clear); Bilirubin Urine Negative (Negative); Blood Urine Negative (Negative); Color Urine Light Yellow (Yellow); Glucose Urine UA Negative (Negative); Ketones Urine Negative (Negative); Leukocyte Esterase Ur Negative LEU/UL (Negative); Nitrate Urine Negative (Negative); Protein Urine Negative (Negative); Urobilinogen Urine 0.2 mg/dL (0.2-1.0)
[2022-08-06 15:12] LABS: Add Urine Microscopic? NO
[2022-08-06 15:13] LABS: Pregnancy On Board Control Positive; Urine Pregnancy Test Negative
[2022-08-06 15:20] LABS: Basophils Absolute Auto 0.02 K/mm3 (0.00-0.10); Basophils Percent Auto 0.4 % (0.0-1.0); Eosinophils Absolute Auto 0.03 K/mm3 (0.02-0.50); Eosinophils Percent Auto 0.6 % (1.0-6.0); Hematocrit 37.8 % (35.0-49.0); Immature Granulocyte Absolute 0.01 K/mm3 (0.00-0.00); Immature Granulocyte Percent A 0.2 % (0.0-0.0); Lymphocytes Absolute Auto 1.53 K/mm3 (1.10-4.50); Lymphocytes Percent Auto 31.5 % (18.0-42.0); Mean Corpuscular HGB Conc 31.7 g/dL (32.0-36.0); Mean Corpuscular Hemoglobin 28.5 pg (27.0-31.0); Mean Corpuscular Volume 89.8 fL (78.0-102.0); Mean Platelet Volume 9.8 fl (9.2-11.8); Monocytes Absolute Auto 0.34 K/mm3 (0.10-0.90); Neutrophils Absolute Auto 2.9 K/mm3 (1.7-7.2); Neutrophils Percent Auto 60.3 % (50.0-70.0); Platelet Count Result 299 K/mm3 (150-420); Red Blood Count 4.21 M/mm3 (4.20-5.40); Red Cell Distribution Width 12.5 % (11.6-14.4); White Blood Count 4.9 K/mm3 (4.8-10.8)
[2022-08-06 15:38] LABS: Alanine Aminotransferase 15 U/L (14-59); Albumin Level 3.4 g/dL (3.4-5.0); Alkaline Phosphatase 59 U/L (46-116); Anion Gap 10 mmol/L (8-16); Aspartate Amino Transferase 11 U/L (15-37); Bilirubin,Total 0.2 mg/dL (0.00-1.00); Blood Urea Nitrogen 11 mg/dL (7-18); Calcium 8.7 mg/dL (8.5-10.1); Carbon Dioxide 26 mmol/L (21-32); Chloride 107 mmol/L (98-108); Estimated CRCL calculation 86 ml/min; Estimated Glomerular Filt Rate > 60; Glucose 97 mg/dL (70-99); Lipase 22 U/L (16-77); Osmolality Calculated 295 mOsm/kg (285-295); Potassium 3.4 mmol/L (3.5-5.1); Sodium 143 mmol/L (136-145); Total Protein 6.9 g/dL (6.4-8.2)
[2022-08-06 15:40] LABS: Lactic Acid Reflex 1.9 mmol/L (0.4-2.0)
[2022-08-06 16:33] VITALS: BP 106/70; PULSE 84; RESP 18; TEMP 36.8; O2SAT 98
== END 2022-08-06 16:37 | disposition home or self-care (01) ==
PROVIDERS: Emergency Provider Emergency Medicine; PCP Physician Assistant
DX: N80.9 Endometriosis, unspecified (principal); R10.31 Right lower quadrant pain
CPT/HCPCS: 36415; 74176; 80053; 81003; 81025; 83605; 83690; 85025; 96374; 96375; 99284; J1885; J2405

== ENCOUNTER 2022-09-24 17:35 | Emergency (ER) | payer BC, SELFPAY ==
[2022-09-24 17:35] VITALS: BP 119/80; PULSE 93; RESP 16; TEMP 36.9; O2SAT 98
[2022-09-24 18:28] LABS: Appearance Urine Clear (Clear); Bilirubin Urine Negative (Negative); Blood Urine 2+ (Negative); Color Urine Light Yellow (Yellow); Glucose Urine UA Negative (Negative); Ketones Urine Negative (Negative); Leukocyte Esterase Ur 3+ (Negative); Nitrate Urine Positive (Negative); Protein Urine 2+ (Negative); Specific Grav Ur 1.025 (1.010-1.020); Urobilinogen Urine 0.2 mg/dL (0.2-1.0); pH Urine 6.5 (5.0-8.0)
[2022-09-24] MEDS: SODIUM CHLORIDE 0.9% IV 1,000 ML 999 ML IV CONT ×2 (18:30→19:15)
[2022-09-24] MEDS: ONDANSETRON INJ 4 MG/2 ML VIAL IV PUSH (18:31)
[2022-09-24] MEDS: KETOROLAC 30 MG/ML VIAL (*BKC) IV PUSH (18:35)
[2022-09-24 18:37] LABS: Add Urine Microscopic? YES
[2022-09-24 18:37] LABS: Hematocrit 37.9 % (35.0-49.0); Hemoglobin 12.1 g/dL (12.0-15.0); Mean Corpuscular HGB Conc 31.9 g/dL (32.0-36.0); Mean Corpuscular Hemoglobin 28.8 pg (27.0-31.0); Mean Corpuscular Volume 90.2 fL (78.0-102.0); Mean Platelet Volume 9.1 fl (9.2-11.8); Platelet Count Result 344 K/mm3 (150-420); Red Cell Distribution Width 12.8 % (11.6-14.4); White Blood Count 9.3 K/mm3 (4.8-10.8)
[2022-09-24 18:38] LABS: Bacteria Urine 2+ /hpf; Squamous Epithelial Cell Urine Few /hpf (Few); WBC Urine >75 /hpf (0-3)
--- NOTE | 2022-09-24 18:38 | PC.NURSE ---
Pt medicated as ordered. Warm blanket provided. Pt voices no other needs at this time.
--- NOTE | 2022-09-24 18:51 | ED.GENADULT ---
HPI - General Adult General Chief complaint: Abdominal Pain Stated complaint: lower back pain; abdominal pain Time Seen by Provider: 09/24/22 18:01 History of Present Illness HPI narrative: patient is a 42-year-old white female went to [place] on the says had done diarrhea for last 4 days she took Pepto-Bismol 2 days ago she has had crampy abdominal pain she says like a knife ripping her abdomen in the front and then it has moved back to the back also like a knife ripping her back. She said everybody in her group got diarrhea after eating some [place] food. She is nauseated she said she had 10 diarrheal stools since 6:30 a.m. in last 24 hours her last stool was black olive green and watery which was at 6:30 a.m. so she has not really had stool for the last 12 hours. There was no blood in her stool she has not had any fever she had a cold sore and she also broke out in a rash on her arm tattoo and saw her primary care provider today and got a steroid shot for this but she did mention her diarrhea to her primary care. 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 Her pain started last night crampy says she is dizzy and lightheaded when she stands she has nausea she gets more cramps after she tries to eat. No fever cough sore throat she does have a headache. . She has had urinary tract in the infection in the past and she thinks she has 1 now because she has abdominal pain and feels good after she voids. Past medical history tachycardia endometriosis Past surgical history 4 C sections right hand surgery Allergies amoxicillin codeine Related Data Home Medications Medication Instructions Recorded Confirmed dextroamphetamine-amphetamine ER 1 cap PO DAILY 09/24/22 09/24/22 15 mg 24hr capsule,extend release Allergies Allergy/AdvReac Type Severity Reaction Status Date / Time amoxicillin Allergy Unknown rash Verified 09/24/22 18:08 codeine Allergy Unknown Verified 09/24/22 18:08 Review of Systems Constitutional: Constitutional: Denies chills, Denies fatigue and Denies fever(s) Eyes: Eyes: Denies no additional eye complaints ENT: Reports dizziness, Denies nasal congestion and Denies sore throat Cardiovascular: Cardiovascular: Denies chest pain Respiratory: Respiratory: Denies cough and Denies dyspnea Gastrointestinal: Gastrointestinal: Denies constipation, Reports diarrhea, Reports nausea and Reports vomiting Genitourinary: Genitourinary: Denies hematuria, Reports nocturia, Denies dysuria and Reports flank pain PMFSH Past Medical History Medical History Headache Sciatica of left side Upper back pain Surgical History Surgical History H/O hand surgery right, with pins History of x 4 Social History Social History Smoking status: Never smoker Alcohol intake: former Substance use: never Substance use type: does not use Living arrangements: with family Spiritual care concerns: No Exam Narrative: White female mild distress. ?Head:? Normocephalic atraumatic.? Eyes conjunctiva pink sclera nonicteric.? ? Oropharynx is clear with moist mucous membranes no exudates.? Neck is supple no lymphadenopathy nontender full range of motion.? Back is nontender.? Chest nontender.? Lungs are clear without wheezes rales or rhonchi.? Heart is regular rate rhythm without murmurs gallops or rubs.? patient's orthostatics, her pulse goes up when she stands up and she feels little lightheaded. Abdomen soft and With Tenderness lower abdomen without rebound or guarding. no hepatosplenomegaly or masses no CVA tenderness no abdominal bruits.? Extremities no cyanosis clubbing or edema.? Neurological she is alert and oriented x4 motor and sensory grossly intact.? Skin is warm and dry without lesions. Course Vital Signs Vital signs: Vital S
[2022-09-24 18:52] LABS: Alanine Aminotransferase 47 U/L (14-59); Albumin Level 3.3 g/dL (3.4-5.0); Alkaline Phosphatase 77 U/L (46-116); Anion Gap 9 mmol/L (8-16); Aspartate Amino Transferase 35 U/L (15-37); Bilirubin,Total 0.1 mg/dL (0.00-1.00); Blood Urea Nitrogen 11 mg/dL (7-18); Calcium 8.9 mg/dL (8.5-10.1); Carbon Dioxide 28 mmol/L (21-32); Chloride 104 mmol/L (98-108); Estimated CRCL calculation 72 ml/min; Estimated Glomerular Filt Rate > 60; Glucose 103 mg/dL (70-99); Lipase 21 U/L (16-77); Osmolality Calculated 291 mOsm/kg (285-295); Potassium 3.9 mmol/L (3.5-5.1); Sodium 141 mmol/L (136-145)
--- NOTE | 2022-09-24 18:58 | PC.NURSE ---
Report to ZOE Thomas who assumes care of pt at this time.
[2022-09-24] MEDS: HYDROcodone/acetaminophen (*CRX) 5-325 MG TABLET 1 TAB PO (19:15)
[2022-09-24] MEDS: PHENAZOPYRIDINE HCL 100 MG TABLET 200 MG PO (19:15)
[2022-09-24] MEDS: CIPROFLOXACIN 400 MG/D5W 200ML 200 ML 200 MG IVPB (19:15)
[2022-09-24 20:17] VITALS: BP 97/60; PULSE 66; RESP 18; O2SAT 99
--- NOTE | 2022-10-31 11:39 | PC.NURSE ---
FINAL URINE CULTURE RESULT: MIXED GENITAL WINDY ISOLATED. NO ACTION NEEDED.
== END 2022-09-24 20:18 | disposition home or self-care (01) ==
PROVIDERS: Emergency Provider Emergency Medicine; PCP Physician Assistant
DX: N30.00 Acute cystitis without hematuria (principal); E86.9 Volume depletion, unspecified
CPT/HCPCS: 36415; 80053; 81001; 83690; 83735; 85027; 87086; 87088; 96361; 96365; 96375; 99284; A9270; J0744; J1885; J2405; J7030